=== PATIENT | male | born 1975 ===

== ENCOUNTER 2023-04-03 19:50 | Inpatient (IN) ==
[2023-04-03] MEDS: EPINEPHrine 1 MG/ML MDV 5 MG in D5W 250 ml BAG 245 ML IV SCH (21:30)
[2023-04-03] MEDS: Propofol 10 mg/ml 100 ML BTL 1,000 MG/100 ML BTL IV SCH (21:33)
[2023-04-03] MEDS: fentaNYL INFUSION 50 mcg/mL VL 2,500 MCG/50 ML VIAL IV SCH (21:45)
[2023-04-03] MEDS ORDERED: Propofol 10 mg/ml 100 ML BTL 1,000 MG/100 ML BTL IV SCH (22:00)
[2023-04-03] MEDS: Propofol 10 mg/ml 100 ML BTL 1,000 MG/100 ML BTL ONE (22:11)
[2023-04-03] MEDS: Chlorhexidine MOUTHWASH 0.12% 15 ML UDC TOPICAL SCH (23:30)
[2023-04-03] MEDS: Pantoprazole VIAL 40 MG VIAL IV SCH (23:30)
[2023-04-03] MEDS: Enoxaparin 40 MG/0.4 ML SYR SUBCUT SCH (23:31)
[2023-04-04 01:29] LABS: ABS Lymphocytes 0.5 10^3/uL (1.0-4.8); ABS Monocytes 0.1 10^3/uL (0.0-1.1); ABS Neutrophils 12.7 10^3/uL (1.5-7.6); ABS Nucleated RBC 0.02 10^3/ul; Hematocrit 42.3 % (38-53); Lymphocyte % 3.9 %; Mean Corpuscular Hgb Conc 35.4 g/dL (31-36); Mean Corpuscular Volume 84.8 fL (80-97); Mean Platelet Volume 6.9 fL (7.5-11.2); Nucleated Red Blood Cells % 0.1 %/100WBC (0.0-0.8); Platelet Count 259 10^3/uL (150-450); Red Blood Count 4.99 10^6/uL (4.06-5.63); Red Cell Distribution Width 14.4 % (12-17); White Blood Count 13.4 10^3/uL (3.6-10.2)
[2023-04-04 02:02] LABS: Albumin 4.3 g/dL (3.2-5.2); Creatinine, Serum 0.91 mg/dL (0.67-1.17); Globulin 2.2 g/dL (2-4); Magnesium 1.7 mg/dL (1.9-2.7); Phosphorus 2.6 mg/dL (2.5-5.0); Potassium 3.9 mmol/L (3.5-5.0); Total Bilirubin 0.7 mg/dL (0.2-1.0); Total Protein 6.5 g/dL (6.4-8.9); eGFR CKD-EPI 104.6 (>60)
[2023-04-04] MEDS: Midazolam 5 mg/5 ml VIAL 1 mg/ml 5 ml VIAL (5 mg) IV SLOW PU ONE (06:37)
[2023-04-04] MEDS: Mometasone/Formoter 200/5 MDI INH SCH (06:37)
[2023-04-04] MEDS: Midazolam 5 mg/5 ml VIAL 1 mg/ml 5 ml VIAL (5 mg) ONE (06:45)
[2023-04-04] MEDS: Magnesium Sulfate IV 1GM/100ML 1 GM/100 ML BAG IV ONE (06:45)
[2023-04-04] MEDS: methylPREDNISolone SOD SUCC 40 mg/ml 1 ml VIAL IV SCH (09:20)
[2023-04-04] MEDS: Dexamethasone IV 4 MG/ML VIAL 1 ml VIAL IV SLOW PU ONE (10:40)
[2023-04-04 12:23] VITALS: BP 131/79
[2023-04-04] MEDS ORDERED: EPINEPHrine Anaphylaxis SYR CERTADOSE SYR KIT ONE (13:23)
[2023-04-04] MEDS: EPINEPHrine Anaphylaxis SYR CERTADOSE SYR KIT IM ONE (13:36)
== END 2023-04-04 13:30 | disposition home or self-care (01) | DRG 811 ==
LOC: ICU 20:16 → SUATTDRO 20:16
PROVIDERS: ADMIT Student in an Organized Health Care Education/Training Program; ATTEND Internal Medicine Critical Care Medicine